=== PATIENT | female | born 1970 | race Caucasian/White ===

== ENCOUNTER 2017-10-05 09:44 | Outpatient (CLI) | payer OTHER ==
--- NOTE | 2017-10-05 10:28 | MMO ---
BILATERAL DIGITAL SCREENING MAMMOGRAMS: Date: 10/05/17 HISTORY: 47-year-old female presents for digital screening mammogram. COMPARISON: 08/13/16, 04/08/15, 04/01/14, and 03/14/13. FINDINGS: This patient's mammogram was interpreted with the assistance of computer-aided detection. The breasts are heterogeneously dense, which can obscure small masses. There is some stable scarring in the left breast and some dystrophic calcifications, evidence for prior left breast biopsy. Stable circumscribed masses in both breasts, evidence for intramammary lymph nodes. Stable right-sided breas t calcifications. IMPRESSION: BIRADS 2: Benign Finding(s) Continue routine screening. POS: [facility]
== END 2017-10-05 09:45 | disposition home or self-care (01) ==
LOC: SCSMAMMO 09:44
PROVIDERS: ATTEND Obstetrics & Gynecology
DX: Z12.31 Encounter for screening mammogram for malignant neoplasm of breast (principal)
CPT/HCPCS: 77067

== ENCOUNTER 2018-01-05 10:15 | Inpatient (IN) | payer OTHER ==
[2018-01-05 10:56] VITALS: BMI 26.6
--- NOTE | 2018-01-10 22:05 | HP ---
DATE OF ADMISSION: 01/11/2018 REASON FOR ADMISSION: Uterine prolapse with symptomatic cystocele. SCHEDULED PROCEDURES: Total laparoscopic hysterectomy, bilateral salpingectomy, uterosacral ligament vaginal vault suspension and anterior repair. HISTORY OF PRESENT ILLNESS: Ms. Dangelo is a 47-year-old 4, para 4, status post x4, who has been my patient for quite a while. She presented in November complaining of pelvic pressure, p ain with intercourse and splinting to void. No splinting required to defecate and no stress incontin ence. She desired definitive surgical management. [employer] SALES PROFESSIONAL HISTORY: Noted. No history of dysplasia. PAST MEDICAL HISTORY: Significant for insulin resistance, hypertension, and hyperthyroidism. PAST SURGICAL HISTORY: Includes gastric sleeve tumor removal, left breast. SOCIAL HISTORY: Denies tobacco, alcohol, IV drug abuse. MEDICATIONS: Furosemide, metformin, and Synthroid. ALLERGIES: PENICILLIN, no reaction to CEPHALOSPORINS. PHYSICAL EXAMINATION: GENERAL: White female. VITAL SIGNS: Height 5 feet 5 inches, weight 160, BMI 26.6, blood pressure 114/70, pulse 92, respirat ions 18. HEENT: Within normal limits. LUNGS: Clear to auscultation bilaterally. HEART: Regular rate and rhythm. BREASTS: Without masses bilaterally. ABDOMEN: nontender. No rebound or guarding. PELVIC: Vulva without lesions. Vagina without discharge. The patient has a grade III cystocele wit h minimal rectocele. Her cervix is at the introitus -2-3 with relaxation. It comes down to -1 with cough or Valsalva. There is no leakage with cough or Valsalva. Uterus is anteverted 4-6 week size a nd no adnexal masses are noted. IMPRESSION: Symptomatic uterine prolapse with cystocele. PLAN: Discussed with patient her options. Considering her young age and desire for return to normal activity, surgical management is indicated. We will proceed with total laparoscopic hysterectomy, b ilateral salpingectomy, uterosacral ligament, vaginal vault suspension and anterior repair with appro priate antibiotic and DVT prophylaxis. The patient understands risks and benefits of the procedure i ncluding bleeding, infection, new onset incontinence and recurrence of prolapse.
[2018-01-11] MEDS ORDERED: CeleCOXIB 100 MG CAP ONE (06:22)
[2018-01-11] MEDS ORDERED: Gabapentin 300 MG CAP ONE (06:22)
[2018-01-11] MEDS ORDERED: CEFAZOLIN 2 GM/50 ML BAG ONE (06:22)
[2018-01-11] MEDS ORDERED: Famotidine/PF 20 mg/2ml Vial ONE (06:22)
[2018-01-11] MEDS ORDERED: Fentanyl 250 MCG/5 ML VIAL ONE (06:29)
[2018-01-11] MEDS ORDERED: Lidocaine 1% w/Epinephrine 1:100K 30 ML VIAL ONE (07:46)
[2018-01-11] MEDS ORDERED: Bupivacaine HCl 0.5%/Epinephrine 1:200,000/PF 30 ml Vial ONE (07:46)
[2018-01-11] MEDS ORDERED: Promethazine HCl 25 MG/ML VIAL IM PRN ×2 (10:10→14:24)
[2018-01-11] MEDS ORDERED: Ondansetron HCl/PF 4 MG/2 ML Vial IVP PRN (10:10)
[2018-01-11] MEDS ORDERED: Promethazine HCl 25 MG/ML VIAL SLOW IVP PRN (10:10)
[2018-01-11] MEDS ORDERED: Promethazine HCl 25 MG/ML VIAL ONE (10:22)
[2018-01-11] MEDS ORDERED: Fentanyl 100 MCG/2 ML VIAL ONE ×2 (11:03→14:25)
--- NOTE | 2018-01-11 11:49 | OP ---
DATE OF PROCEDURE: 01/11/2018 PREOPERATIVE DIAGNOSES: Symptomatic uterine prolapse with a cystocele. POSTOPERATIVE DIAGNOSES: Symptomatic uterine prolapse with a cystocele. PROCEDURE: Total laparoscopic hysterectomy, bilateral salpingectomy, laparoscopic uterosacral ligame nt vaginal vault suspension and anterior colporrhaphy. SURGEON: Stuart Muhammad M.D. SCHOOL YEAR NANNY: Marcie Arce M.D. ANESTHESIA: General endotracheal. Nahum Randall M.D. DRAINS: Brizuela to gravity with approximately 800 mL output intraoperatively. MEDICATIONS: Two grams Ancef preincision. DVT PROPHYLAXIS: SCDs. OPERATIVE FINDINGS: 1. Uterus with an incomplete prolapse to the level of the introitus. 2. Normal appearing tubes and ovaries bilaterally. 3. Hemostasis with clear urine, counts correct at the end of the procedure. 4. Vag pack and status post posterior repair. DISPOSITION: Recovery room in good condition. DESCRIPTION OF OPERATIVE PROCEDURE: After obtaining proper informed consent, the patient was taken t o the operating room where general anesthesia was achieved without difficulty. The patient prepped a nd draped in dorsal lithotomy position in Herbie stirrups. Weighted speculum placed in vagina, cervix identified just inside the introitus. Uterus sounded to 8 cm and the LENA manipulator placed with a 4 cm vaginal art class model and an 8 cm obturator. Tenaculum and speculum removed. [employer] changed hi s gloves and turned his attention to the abdominal portion of procedure. Brizuela had been placed in th e bladder and the bladder drained and then hooked up to a 60 mL syringe and placed on the abdomen. Previous laparoscopic trocar sites from a gastric bypass were identified and midline 1-2 cm above t he umbilicus was used for the camera. It was injected with lidocaine with epinephrine. A Veress nee dle placed inside abdominal cavity. Insufflation carried out with carbon dioxide to a max pressure 1 5. A 12 mm trocar placed in this area. An 11 mm photo studio assistant port placed in the right upper quadrant a nd then two 8 mm da Dwight ports were placed lateral to the epigastric vessels at the level of the umb ilicus. The patient was placed in steep Trendelenburg and the da Dwight robot docked with monopolar s cissors in the right hand and bipolar fenestrated forceps in the left. Findings as noted in the oper ative findings were noted. The ureters were easily identified bilaterally and noted to be well later al to the uterosacral ligaments. The peritoneum between the uterosacral ligaments and the ureters wa s opened up for ureterolysis lateral to the uterosacral ligament on each side for a distance of appro ximately 5-6 cm back towards the sacrum from just below the cervix. Once this was accomplished, atte ntion was turned to the left adnexa. The mesosalpinx was coagulated and transected all the way down to the level of the fallopian tube insertion into the uterus and the tube amputated and removed. The utero-ovarian was then coagulated and transected through the broad and the round ligament. Anterior ly, the vesicouterine peritoneum was incised sharply, and the peritoneum and bladder was dissected of f the cervix and upper vagina. Back out in the left broad ligament and cardinal ligament complex coa gulation and transection was carried down to the level of the internal cervical os. At this level, t he uterine vessels were identified, dissected, coagulated and transected, and this was taken down to the level of the apex of the vagina. Attention was turned to the patient's right side where the iden tical procedure was carried out. Posteriorly, the peritoneum was taken off at the level of the cervi x and vagina interface. Anteriorly the same had already been done and the vagina was entered anterio rly at 12 o'clock using monopolar scissors. This was extended from 12 to 3 and from 12 to 9, then fr om 6-9 and 6-3. The vascular bundles at the corners at 3 and 9 o'clock were coagulated and transecte d. The specimen pulled in the vagina to maintain pneumoperitoneum. Inspection of the cuff revealed good hemostasis and was closed in a running continuous 2 layer manner using a Stratafix PDS suture. Suction irrigation confirmed good hemostasis. The ureters were inspected and noted to be well latera l to the surgical field. O Ethibonds were brought into the abdominal cavity on the patient's right, they were used to pass through the uterosacral ligament at a level high towards the sacrum where the ureterolysis had been performed. It was then reefed down the inside aspect of the uterosacral ligame nt and incorporated the corner of the vagina on the patient's right both anterior and posterior and t hen brought back to the uterosacral ligament. This was tied down in an anatomic manner after lifting the vaginal apex to an anatomic position. The identical procedure was carried out on the patient's left. After this was performed a modified Halban's culdoplasty was performed using an Ethibond incor porating the middle of the posterior aspect of the vagina. The uterosacral ligaments reefing across the peritoneum overlying the rectum and the cul-de-sac of Adal, reincorporating the uterosacral li gament and then back through the vagina. This was tied down obliterating the cul-de-sac of Adal. Suction irrigation was carried out and good hemostasis was noted throughout. Ureters were identifie d throughout their course in the pelvis and noted to be without any tension or kinking secondary to t he extensive ureterolysis that have been carried out. Tisseel was applied across all raw surfaces. The abdomen desufflated of carbon dioxide after da Dwight instruments were removed and the da Dwight un docked. Trocars removed. Fascia reapproximated at the largest trocar site using a 0 Vicryl and the skin reapproximated x4 using 4-0 Monocryl and Dermabond. Legs were rotated up and a weighted speculu m was then placed in the vagina. The specimen had been removed from the vagina. A cystocele was ins pected and after vault suspension, cystocele was significantly smaller than was noted in the office. The bladder was grasped at the level just at the disappearance of rugation and all the way down to j ust above the apex of the vagina. Anterior compartment was injected with 10 mL of lidocaine with epi nephrine and a vertical midline incision made. The vesicovaginal fascia was dissected off laterally on each side and then plicated over the middle using horizontal mattresses of 0 Vicryl. Good elevati on and plication of the vesicovaginal fascia was noted. No excess vaginal mucosa was noted and the v aginal mucosa was then reapproximated using interrupted [id number] of 0 Vicryl. A moistened Ker lix sponge was placed. Good clear urine was noted from the bladder. Decision was made not to procee d with cystoscopy as there had been no concern for ureteral kinking with the vault suspension and obl iteration of the cul-de-sac visibly and good urine output was noted that was clear. Counts were lenny ect and the patient was awakened, extubated, and taken to the recovery room in good condition with Ke rlix sponge as a Vag pack in place. We will plan on removing Brizuela and Vag pack on postop day #1 in the a.m.
[2018-01-11] MEDS ORDERED: HYDROcodone/Acetaminophen 10/325 mg Tablet PO PRN ×2 (14:24)
[2018-01-11] MEDS ORDERED: diphenhydrAMINE 25 MG CAP PO PRN (14:24)
[2018-01-11] MEDS ORDERED: Ondansetron PF 4 MG/2 ML Vial IVP PRN (14:24)
[2018-01-11] MEDS ORDERED: Zolpidem Tartrate 5 MG TAB PO PRN (14:24)
[2018-01-11] MEDS ORDERED: Simethicone Chewable 80 MG TAB PO PRN (14:24)
[2018-01-11] MEDS: Ketorolac Tromethamine 30 MG/ML VIAL IVP SCH ×2 (18:41→23:36)
[2018-01-11] MEDS: Sodium Chloride 0.9% 1,000 ML IV SCH ×2 (20:14→22:24)
[2018-01-12] MEDS: Ketorolac Tromethamine 30 MG/ML VIAL IVP SCH (05:32)
[2018-01-12] MEDS ORDERED: Levothyroxine 150 MCG TAB PO SCH (06:00)
[2018-01-12 06:14] LABS: Hemoglobin 10.6 g/dL (12.0-16.0); Mean Corpuscular HGB CONC 32.8 g/dL (32.0-36.0); Mean Corpuscular Hemoglobin 30.2 pg (27.0-31.0); Mean Corpuscular Volume 91.9 fL (78.0-98.0); Mean Platelet Volume 6.9 fL (7.4-10.4); Platelet Count 207 thou/uL (130-400); RBC Distribution Width 12.1 % (11.5-14.5); Red Blood Cell (RBC) Count 3.51 mill/uL (4.20-5.40); White Blood Cell (WBC) Count 6.5 thou/uL (4.8-10.8)
[2018-01-12 08:01] VITALS: BP 93/59; TEMP 98.4
[2018-01-12] MEDS: Sodium Chloride 0.9% 1,000 ML IV SCH (08:48)
--- NOTE | 2018-01-12 11:16 | DIS ---
DATE OF ADMISSION: 01/11/2018 DATE OF DISCHARGE: 01/12/2018 IN-HOSPITAL PROCEDURES: Total laparoscopic hysterectomy, bilateral salpingectomy, uterosacral ligame nt vaginal vault suspension with anterior colporrhaphy. SUMMARY OF HOSPITAL COURSE: The patient was admitted and underwent the aforementioned procedure with minimal blood loss on a.m. of 01/11/2018. The patient had good urine output in the postoperative pe riod and tolerated p.o. intake on postop day #1. In a.m. postop day #1, Brizuela and Vag pack were massiel darrel. A Vag pack was noted to be dry. Perineum was dry. The patient is voiding with ease with feeli ng of complete emptying. LABORATORY: Hematocrit postop day #1 is 32% with normal white count, normal platelets. PHYSICAL EXAMINATION: LUNGS: Clear to auscultation bilaterally. HEART: Regular rhythm. BREASTS: Mass bilaterally. ABDOMEN: Soft, nontender with reapproximated trocar sites, x4. No significant erythema or induratio n noted. Her perineum is dry. EXTREMITIES: Without clubbing, cyanosis or edema. VITAL SIGNS: Blood pressure is 118/50, pulse 85, respirations 18, temperature 98.6. IMPRESSION: Doing well status post total laparoscopic hysterectomy, bilateral salpingectomy, uterosa cral ligament vaginal vault suspension and anterior colporrhaphy. PLAN: Discharge home at 1100 today. Keep scheduled followup, discharge medications including resumi ng all preoperative medications and [place] sent to the patient's pharmacy .
== END 2018-01-12 10:25 | disposition home or self-care (01) | DRG 743 ==
LOC: SURG A 01-11 05:48 → 3SE 01-11 15:27
PROVIDERS: ADMIT Obstetrics & Gynecology; ATTEND Obstetrics & Gynecology
PROC: 0UT94ZZ Resection of Uterus, Percutaneous Endoscopic Approach (ICD-10-PCS; principal; 2018-01-11)
PROC: 0UT74ZZ Resection of Bilateral Fallopian Tubes, Percutaneous Endoscopic Approach (ICD-10-PCS; 2018-01-11)
PROC: 0USG4ZZ Reposition Vagina, Percutaneous Endoscopic Approach (ICD-10-PCS; 2018-01-11)
PROC: 0JQC3ZZ Repair Pelvic Region Subcutaneous Tissue and Fascia, Percutaneous Approach (ICD-10-PCS; 2018-01-11)
DX: N81.10 Cystocele, unspecified (principal); N81.2 Incomplete uterovaginal prolapse
CPT/HCPCS: 36415; 85027; 88305; J0131; J0670; J1885; J2001; J2550; J3010; S0028

== ENCOUNTER 2018-01-05 10:19 | Outpatient (CLI) | payer OTHER ==
[2018-01-05 12:50] LABS: Hemoglobin 13.2 g/dL (12.0-16.0); Mean Corpuscular HGB CONC 32.4 g/dL (32.0-36.0); Mean Corpuscular Hemoglobin 29.6 pg (27.0-31.0); Mean Corpuscular Volume 91.2 fL (78.0-98.0); Mean Platelet Volume 7.4 fL (7.4-10.4); Platelet Count 268 thou/uL (130-400); RBC Distribution Width 12.3 % (11.5-14.5); Red Blood Cell (RBC) Count 4.47 mill/uL (4.20-5.40); White Blood Cell (WBC) Count 8.5 thou/uL (4.8-10.8)
== END 2018-01-05 10:20 | disposition home or self-care (01) ==
LOC: LABBT 10:19
PROVIDERS: ATTEND Obstetrics & Gynecology
DX: Z01.812 Encounter for preprocedural laboratory examination (principal); N81.4 Uterovaginal prolapse, unspecified
CPT/HCPCS: 85027; 86850; 86900; 86901

== ENCOUNTER 2018-10-26 09:07 | Outpatient (CLI) | payer OTHER ==
--- NOTE | 2018-10-26 10:22 | MMO ---
Bilateral MAMMO Bilat Screen [facility]. CLINICAL HISTORY: Patient is 48 years old and is seen for screening. The patient has no family history of breast cancer. The patient has no personal history of cancer. VIEWS: The views performed were: bilateral craniocaudal with tomosynthesis and bilateral mediolateral oblique with tomosynthesis. FILMS COMPARED: The present examination has been compared to prior imaging studies performed at [facility] on 04/01/2014, 04/08/2015, 08/13/2016 and 10/05/2017. MAMMOGRAM FINDINGS: There are scattered fibroglandular densities. Finding 1: There are stable benign appearing calcifications seen in both breasts. Finding 2: There are stable intramammary lymph nodes seen in both breasts. Finding 3: There is a stable post-surgical scar seen in the left breast. There are no suspicious masses, suspicious calcifications, or new areas of architectural distortion. IMPRESSION: THERE IS NO MAMMOGRAPHIC EVIDENCE OF MALIGNANCY. A ROUTINE FOLLOW-UP MAMMOGRAM IN 1 YEAR IS RECOMMENDED. THE RESULTS OF THIS EXAM WERE SENT TO THE PATIENT. ACR BI-RADS Category 2 - Benign finding MAMMOGRAPHY NOTE: 1. A negative mammogram report should not delay a biopsy if a dominant of clinically suspicious mass is present. 2. Approximately 10% to 15% of breast cancers are not detected by mammography. 3. Adenosis and dense breasts may obscure an underlying neoplasm. Reported by: ALDO PARADA MD Electonically Signed: [id number]
== END 2018-10-26 09:08 | disposition home or self-care (01) ==
LOC: BICMAMMO 09:07
PROVIDERS: ATTEND Obstetrics & Gynecology
DX: Z12.31 Encounter for screening mammogram for malignant neoplasm of breast (principal)
CPT/HCPCS: 77063; 77067

== ENCOUNTER 2019-05-03 07:38 | Outpatient (CLI) | payer OTHER ==
--- NOTE | 2019-05-03 08:42 | MRI ---
EXAM: MRI left ankle PROVIDED CLINICAL HISTORY: Pain status post injury COMPARISON: None FINDINGS: There is high-grade partial-thickness attenuating tearing involving the posterior tibialis tendon at and distal to the level of the medial malleolus. The midfoot insertion appears intact. There is greater than physiologic tenosynovial fluid about the posterior tibialis and flexor digitorum tendons . The anterior extensor, peroneal and Achilles tendons appear normal. There is partial thickness tearing of the anterior superficial fibers of the deltoid ligament. The me dial and lateral ankle ligaments appear otherwise intact. Ganglion cyst is noted at the anterolateral aspect of the tibiotalar joint, measuring about 1 cm. Regional marrow and muscular signal appear unremarkable. No regional joint effusion is evident. Align ment appears anatomic. Joint spaces appear preserved. No focal tibiotalar articular cartilage defect apparent. There is preservation of the normal fat signal intensity within the tarsal sinus. The plantar aponeur osis appears normal. IMPRESSION: 1. High-grade partial-thickness attenuating tear of the distal posterior tibialis tendon. 2. Partial thickness tear of the superficial fibers of the deltoid ligament.
== END 2019-05-03 07:39 | disposition home or self-care (01) ==
LOC: BICMRI 07:38
PROVIDERS: ATTEND Family Medicine
DX: M25.572 Pain in left ankle and joints of left foot (principal); S86.812A Strain of other muscle(s) and tendon(s) at lower leg level, left leg, initial encounter